=== PATIENT | male | born 1970 | race Caucasian/White ===

== ENCOUNTER 2023-12-19 10:58 | Emergency (ER) | payer OTHER ==
[~2023-12-19] VITALS: Ht 175.3 cm; Wt 104.3 kg
[2023-12-19] MEDS: KETOROLAC TROMETHAMINE 30 MG/ML VIAL IV STA (11:38)
[2023-12-19] MEDS: ONDANSETRON HCL INJ 2MG/ML 2ML 2 MG/ML VIAL IV STA (11:38)
[2023-12-19] MEDS ORDERED: SODIUM CHLORIDE 0.9% 1000ML 1,000 ML ONE (11:40)
[2023-12-19] MEDS: SODIUM CHLORIDE 0.9% 1000ML 1,000 ML IV ONE (11:52)
[2023-12-19] MEDS ORDERED: VITAMIN C1000 MG PO (11:53)
[2023-12-19] MEDS ORDERED: ATORVASTATIN CA20 MG PO (11:53)
[2023-12-19] MEDS ORDERED: ULTRAM 50MG50 MG PO (11:53)
[2023-12-19] MEDS ORDERED: MELOXICAM7.5 MG PO (11:53)
[2023-12-19] MEDS ORDERED: OMEPRAZOLE40 MG PO (11:53)
[2023-12-19] MEDS: Morphine 4mg INJECTION 4 MG/ML INJ IV ONE (12:21)
[2023-12-19 12:37] VITALS: PULSE 62; RESP 14; TEMP 98.2; O2SAT 96
== END 2023-12-19 13:33 | disposition home or self-care (01) ==
LOC: FSED 11:11
DX: R10.32 Left lower quadrant pain (principal); M54.50 Low back pain, unspecified; R11.0 Nausea; K21.9 Gastro-esophageal reflux disease without esophagitis; Z87.442 Personal history of urinary calculi
CPT/HCPCS: 74176; 80053; 81003; 85025; 96374; 96375; 99284; J1885; J2270; J2405; J7030